=== PATIENT | male | born 1985 | race Two or more races ===

== ENCOUNTER 2023-11-21 14:39 | Emergency (ER) | payer OTHER ==
[~2023-11-21] VITALS: Ht 167.6 cm; Wt 99.8 kg
[2023-11-21 18:13] LABS: BASOPHILS % (AUTO) 0.3 % (0.0-2.0); EOSINOPHILS # (AUTO) 0.3 K/uL (0.0-0.7); EOSINOPHILS % (AUTO) 3.3 % (0.0-6.0); HEMATOCRIT 45 % (39-51); HEMOGLOBIN 15.6 g/dL (13.5-17.5); LYMPHOCYTES # (AUTO) 0.8 K/uL (0.8-4.8); LYMPHOCYTES % (AUTO) 8.8 % (20.0-44.0); MEAN CORPUSCULAR HEMOGLOBIN 30 PG (26.0-33.0); MEAN CORPUSCULAR HGB CONC 35 g/dl (31.0-36.0); MEAN CORPUSCULAR VOLUME 86 fL (80-96); MONOCYTES # (AUTO) 0.6 K/uL (0.1-1.30); MONOCYTES % (AUTO) 6.6 % (2.0-12.0); NEUTROPHILS # (AUTO) 7.1 K/uL (1.8-8.9); PLATELET COUNT (AUTO) 155 K/uL (150-450); RED BLOOD CELL COUNT(AUTO) 5.18 MIL/uL (4.5-6.0); RED CELL DISTRIBUTION WIDTH 12.8 % (11.5-15.0); WHITE BLOOD COUNT (AUTO) 8.7 K/uL (4.3-11.0)
[2023-11-21 18:23] LABS: CREATININE 1.2 mg/dL (0.6-1.3); POTASSIUM 3.7 mmol/L (3.5-5.1)
[2023-11-21 18:27] LABS: ALBUMIN 3.9 g/dL (3.4-5.0); BILIRUBIN,TOTAL 2.9 mg/dL (0.2-1.0); TOTAL PROTEIN, SERUM 8.7 g/dL (6.4-8.2)
[2023-11-21 18:29] LABS: LACTIC ACID 1.3 mmol/L (0.4-2.0)
[2023-11-21 18:50] LABS: ALCOHOL, BLOOD < 3 mg/dL (0-10); LIPASE 28 U/L (16-77)
[2023-11-21 19:43] LABS: APPEARANCE,URINE CLEAR (CLEAR); BILIRUBIN,URINE 1+ (NEGATIVE); BLOOD, URINE 2+ Ery/uL (NEGATIVE); COLOR,URINE YELLOW (YELLOW); KETONES,URINE NEGATIVE (NEGATIVE); NITRITE, URINE NEGATIVE (NEGATIVE); PROTEIN,URINE 2+ mg/dl (NEGATIVE); UGLUCOSE NEGATIVE (NEGATIVE)
[2023-11-21 20:32] LABS: ADD URINE CULTURE NO; BACTERIA,URINE 1+ /HPF (None Seen); RBC,URINE 21-50 /HPF (0-2); WBC,URINE 0-2 /HPF (0-3)
[2023-11-21 20:33] LABS: LEUKOCYTE ESTERASE ,URINE NEGATIVE (NEGATIVE); MUCUS,URINE Few /LPF (None Seen)
[2023-11-21] MEDS ORDERED: CLIN150C16 PO (20:53)
[2023-11-21 20:59] VITALS: BP 126/76; TEMP 98.8; O2SAT 100
== END 2023-11-21 21:00 | disposition home or self-care (01) ==
LOC: ER 14:48
DX: R50.9 Fever, unspecified (principal); I88.0 Nonspecific mesenteric lymphadenitis; Z60.2 Problems related to living alone; Z20.822 Contact with and (suspected) exposure to COVID-19
CPT/HCPCS: 36415; 71045-TC; 76705-TC; 80053-TC; 81001; 83605-TC; 83690-TC; 85025-TC; 87040-TC; G0480

== ENCOUNTER 2023-11-23 01:31 | Emergency (ER) | payer OTHER ==
[~2023-11-23] VITALS: Ht 167.6 cm; Wt 90.7 kg
[~2023-11-23 01:31] MED LIST: CLIN150C16 PO
[2023-11-23] MEDS: FAMOTIDINE/PF INJ 40 MG in IV D5W 250 ML IV ONE (02:00)
[2023-11-23] MEDS: IV NS 0.9% 1,000 ML IV ONE ×2 (02:00→03:00)
[2023-11-23] MEDS: diphenhydrAMINE HCL 50 MG/ML VIAL IV ONE (02:00)
[2023-11-23] MEDS: ONDANSETRON 4 MG TAB.RAPDIS PO ONE (02:00)
[2023-11-23 02:24] LABS: BASOPHILS # (AUTO) 0.1 K/uL (0.0-0.2); EOSINOPHILS # (AUTO) 0.4 K/uL (0.0-0.7); EOSINOPHILS % (AUTO) 5.8 % (0.0-6.0); HEMATOCRIT 42 % (39-51); HEMOGLOBIN 14.6 g/dL (13.5-17.5); LYMPHOCYTES # (AUTO) 0.7 K/uL (0.8-4.8); LYMPHOCYTES % (AUTO) 10.2 % (20.0-44.0); MEAN CORPUSCULAR HEMOGLOBIN 30 PG (26.0-33.0); MEAN CORPUSCULAR HGB CONC 35 g/dl (31.0-36.0); MEAN CORPUSCULAR VOLUME 87 fL (80-96); MONOCYTES # (AUTO) 0.7 K/uL (0.1-1.30); MONOCYTES % (AUTO) 10.2 % (2.0-12.0); NEUTROPHILS # (AUTO) 5.2 K/uL (1.8-8.9); NEUTROPHILS % (AUTO) 72.8 % (43.0-81.0); PLATELET COUNT (AUTO) 138 K/uL (150-450); RED BLOOD CELL COUNT(AUTO) 4.85 MIL/uL (4.5-6.0); RED CELL DISTRIBUTION WIDTH 12.9 % (11.5-15.0); WHITE BLOOD COUNT (AUTO) 7.2 K/uL (4.3-11.0)
[2023-11-23 02:29] LABS: CREATININE 1.2 mg/dL (0.6-1.3); POTASSIUM 3.6 mmol/L (3.5-5.1)
[2023-11-23] MEDS ORDERED: FAMO-131 PO (03:05)
[2023-11-23] MEDS ORDERED: CETI-108 PO (03:05)
[2023-11-23] MEDS ORDERED: ONDANSETRON 4 MG TAB.RAPDIS ONE (03:18)
[2023-11-23] MEDS ORDERED: diphenhydrAMINE HCL 50 MG/ML VIAL ONE (03:18)
[2023-11-23] MEDS ORDERED: FAMOTIDINE/PF INJ 20 MG/2 ML VIAL IV ONE (03:19)
[2023-11-23 04:17] VITALS: BP 136/81; TEMP 98; O2SAT 100
== END 2023-11-23 04:52 | disposition home or self-care (01) ==
LOC: ER 01:37
DX: R11.0 Nausea (principal); R19.7 Diarrhea, unspecified; T49.0X5A Adverse effect of local antifungal, anti-infective and anti-inflammatory drugs, initial encounter; Z60.2 Problems related to living alone; Y92.89 Other specified places as the place of occurrence of the external cause
CPT/HCPCS: 99284; 96365; 96361; 96375; 93005; 85025; 80048; 36415; J1200; J3490; J7030 ×2; Q0162; A4223; J7060